=== PATIENT | female | born 1940 | race Hispanic/Latino ===

== ENCOUNTER 2017-11-09 20:48 | Emergency (ER) | payer MEDICARE, OTHER ==
[~2017-11-09] VITALS: Ht 157.5 cm; Wt 62.1 kg
[~2017-11-09 20:48] MED LIST: GLIPIZIDE10 MG PO; LISINOPRIL10 MG PO; LOSARTAN POTASS25 MG PO; NEXIUM20 MG PO; ONGLYZA5 MG PO
== END 2017-11-09 21:30 | disposition home or self-care (01) ==
LOC: FSED 20:48
DX: R05 Cough (principal); J20.9 Acute bronchitis, unspecified; J02.9 Acute pharyngitis, unspecified
CPT/HCPCS: 83518; 99283

== ENCOUNTER 2018-10-10 20:14 | Emergency (ER) | payer MEDICARE, OTHER ==
[~2018-10-10] VITALS: Ht 144.8 cm; Wt 58.5 kg
--- OUTSIDE RECORDS SUMMARY | 2018-10-10 20:17 | XMS REPORT | Continuity of Care Document ---
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 Diagnosis 11/04/2017 Roland Wooten Near syncope Active Diagnosis 11/04/2017 Roland Wotoen Abnormal EKG Active Problem 11/04/2017 Roland Wooten Diabetes mellitus with complication Active Diagnosis 11/04/2017 Roland Wooten Dizziness and giddiness Active Diagnosis 11/04/2017 Roland Wooten Essential hypertension Active Problem 11/04/2017 Roland Wooten Venous insufficiency Active Problem 11/04/2017 Roland Wooten Non-rheumatic mitral regurgitation Active Problem 11/04/2017 Roland Wooten Heart palpitations Active Diagnosis 11/04/2017 Roland Wooten Nonrheumatic tricuspid insufficiency Active Problem 11/04/2017 Roland Wooten Status post ablation of incompetent vein using laser Active Problem 11/04/2017 Roland Wooten Varicose veins of bilateral lower extremities with other complications Active Problem 11/04/2017 Roland Wooten NICHOLS Active Problem 11/04/2017 Roland Wooten Easy fatigability Active Problem 11/04/2017 Roland Wooten DVT , unspecified laterality Active Problem 11/04/2017 Roland Wooten Exercise-induced shortness of breath Active Diagnosis 11/04/2017 Roland Wooten Atherosclerosis of [place]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 intermittent claudication Active Problem 11/04/2017 Roland Wooten Chest pain, unspecified chest pain type Active Problem 11/04/2017 Roland Wooten Medications Medication Details Route Status Patient Instructions Ordering Provider Order Date Source Lisinopril 10 Mg Tablet, 5 Mg Oral Daily Active 12/08/2015 [facility] Metoprolol Tartrate 1 tablet Orally Active 25 MG Orally Twice a day eJ 05/08/2015 Roland Wooten GlipiZIDE 1 tablet Orally Active 10 mg Orally Twice a day [place] Aspirin 1 tablet Orally Active 81 MG Orally Once a day [place] Woot[place] Losartan Potassium 1 tablet Orally Active 25 MG Orally Once a day [place] Woot[place] Saxagliptin HCl 1 tablet Orally Active 5 MG Orally Once a day [place] Wooten Esomeprazole Magnesium (Nexium) 20 Mg Capsule.dr Daily Active PROTONIX THERAPEUTIC INTERCHANGE PER [facility] Glipizide 10 Mg Tablet Twice A Day Active [facility] Losartan Potassium 25 Mg Tablet Daily for Elevated Blood Pressure Active [facility] Saxagliptin Hcl (Onglyza) 5 Mg Tablet Daily Active [facility] Allergies, Adverse Reactions, Alerts Substance Category Reaction Severity Reaction type Status Date Reported Comments Source Diphenhydramine Hives, itching, trouble breathing Mild Allergy to Substance Active 12/06/2015 [facility] Lisinopril Adverse Reaction Cough Adverse Reaction Active 11/24/2016 Roland Wooten Benadryl Adverse Reaction Anxiety Adverse Reaction Active 11/24/2016 Roland Wooten Immunizations Immunization Date Given Site Status Last Updated Comments Source Results Order Name Results Value Reference Range Date Interpretation Comments Source Vital Signs Vital Sign Value Date Comments Source Weight 126 11/24/2016 Roland Wooten Height 62 11/24/2016 Roland Wooten Temperature Oral (F) 97.3 F 11/24/2016 Roland Wooten Heart Rate 83 11/24/2016 Roland Wooten Diastolic (mm Hg) 80 11/24/2016 Roland Wooten Systolic (mm Hg) 120 11/24/2016 Roland Wooten Encounters Location Location Details Encounter Type Encounter Number Reason For Visit Attending Provider ADM Date DC Date Status Source Departed Emergency Room [id number] CLAUDIA SALAS MD 11/09/2017 11/09/2017 [facility] Procedures Procedure Code Date Perfomer Comments Source
--- OUTSIDE RECORDS SUMMARY | 2018-10-10 20:17 | XMS REPORT ---
Author Author Pk Wooten Organization [employer] Address Unknown Phone Unavailable Care Team Providers Care Conveyor Worker Name Role Phone Pk Wooten CP Unavailable Allergies, Adverse Reactions, Alerts Substance Reaction Event Type Lisinopril Cough Drug Allergy Benadryl Anxiety Drug Allergy Problems Problem Type Condition Code Onset Dates Condition Status Assessment Peripheral vascular disease with claudication I73.9 Active Assessment Varicose veins of lower extremities with other complications I83.899 Active Assessment Near syncope R55 Active Problem Abnormal EKG R94.31 Active Assessment Diabetes mellitus with complication E11.8 Active Problem Near syncope R55 Active Assessment Dizziness and giddiness R42 Active Problem Essential hypertension I10 Active Problem Venous insufficiency I87.2 Active Problem Diabetes mellitus with complication E11.8 Active Problem Non-rheumatic mitral regurgitation I34.0 Active Problem Peripheral vascular disease with claudication I73.9 Active Assessment Heart palpitations R00.2 Active Assessment Essential hypertension I10 Active Problem Nonrheumatic tricuspid (valve) insufficiency I36.1 Active Assessment Abnormal EKG R94.31 Active Problem Status post ablation of incompetent vein using laser Z98.89 Active Problem Varicose veins of bilateral lower extremities with other complications I83.893 Active Problem NICHOLS (dyspnea on exertion) R06.09 Active Problem Easy fatigability R53.83 Active Problem Varicose veins of lower extremities with other complications I83.899 Active Problem DVT (deep venous thrombosis), unspecified laterality I82.409 Active Assessment Exercise-induced shortness of breath R06.02 Active Problem Atherosclerosis of [place]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 intermittent claudication I70.219 Active Problem Heart palpitations R00.2 Active Problem Dizziness and giddiness R42 Active Problem Chest pain, unspecified chest pain type R07.9 Active Problem Exercise-induced shortness of breath R06.02 Active Medications Medication Code System Code Instructions Start Date End Date Status Dosage GlipiZIDE [facility] 62429792595 10 mg Orally Twice a day Active 1 tablet Aspirin [place] 92398196568 81 MG Orally Once a day Active 1 tablet Losartan Potassium [facility] 51591689061 25 MG Orally Once a day Active 1 tablet Saxagliptin HCl [facility] 14610000769 5 MG Orally Once a day Active 1 tablet Metoprolol Tartrate [facility] 64461870663 25 MG Orally Twice a day May 08, 2015 Active 1 tablet Vital Signs Date/Time: Nov 24, 2016 BMI 23.04 Index Weight 126 lbs Height 62 in Temperature 97.3 F Cardiac Monitoring Heart Rate 83 /min Blood Pressure Diastolic 80 mm Hg Blood Pressure Systolic 120 mm Hg Results No Known Results Summary Purpose [employer] Submission
[2018-10-10] MEDS ORDERED: SODIUM CHLORIDE 0.9% 1000ML 1,000 ML IV SCH (21:00)
[2018-10-11 10:13] LABS: C DIFFICILE TOXIN A&B AMP PROB NEGATIVE (NEGATIVE)
[2018-10-11 10:49] LABS: WBC,FECAL (FECAL LACTOFERRIN) POSITIVE (NEGATIVE)
== END 2018-10-11 00:04 | disposition home or self-care (01) ==
LOC: FSED 20:14
DX: R19.7 Diarrhea, unspecified (principal); R10.84 Generalized abdominal pain; E11.9 Type 2 diabetes mellitus without complications; Z85.038 Personal history of other malignant neoplasm of large intestine; Z98.0 Intestinal bypass and anastomosis status
CPT/HCPCS: 80053; 81003; 83630; 85025; 87045; 87177; 87328; 87493; 99283

== ENCOUNTER 2021-05-18 19:48 | Emergency (ER) | payer MEDICARE, OTHER ==
[~2021-05-18] VITALS: Ht 144.8 cm; Wt 58.5 kg
== END 2021-05-19 00:30 | disposition home or self-care (01) ==
LOC: ER 21:09
DX: S00.83XA Contusion of other part of head, initial encounter (principal); M25.532 Pain in left wrist; M25.572 Pain in left ankle and joints of left foot; V43.62XA Car passenger injured in collision with other type car in traffic accident, initial encounter; Y92.488 Other paved roadways as the place of occurrence of the external cause; E11.9 Type 2 diabetes mellitus without complications; Z85.038 Personal history of other malignant neoplasm of large intestine
CPT/HCPCS: 70450; 99283